=== PATIENT | female | born 1965 | race Caucasian/White ===

== ENCOUNTER → 2020-12-10 | Day surgery (SDC) | payer OTHER, MEDICAID ==
[~2020-12-10] MED LIST: CLONAZEPAM 0.50.5 M1 PO; EPIPEN0.3 MG/0.1 IM; ESTER-C 1,0001 EACH PO; FENOFIBRATE160 MG PO; FLEXERIL PO; IMITREX 25 MG T25 M1 PO; KRILL OIL 1,001 EAC1 PO; LEVO-T100 MCG PO; LITHIUM CARBON150 MG PO; MELATONIN10 M3 PO; MILLTRIUM SENI1 EACH PO; NORCO5 PO; OMEPRAZOLE 20 M20 M1 PO; PROAIR HFA8.5 GM INH; PROZAC10 M1 PO; SEROQUEL300 MG PO; TENS 5021 EACH MISCELL; TRAZODONE HCL100 MG PO; TYLENOL325 M1 PO; VITAMIN D310 MC2 PO
--- NOTE | ~2020-12-10 | OP ---
[address] [address] OPERATIVE REPORT Name: ARNAV BARRY Room: [facility]#: [id number] Admission: 12/10/20 Attend Phys: Andrew Turner II Discharge: Date of : 69 Report #: [id number] THIS REPORT FOR: cc: Hannah Lipscomb MD, Pamela MD Greiner, Robert F. II DO ~ DOC #: [id number] Andrew Turner II, DO DATE OF SURGERY: 12/10/2020 PREOPERATIVE DIAGNOSIS: Right knee meniscus tear. POSTOPERATIVE DIAGNOSES: 1. Right knee meniscus tear. 2. Grade 3 chondromalacia of medial femoral condyle. 3. Lateral tracking patella. PROCEDURES PERFORMED: 1. Right knee arthroscopic surgery with partial medial meniscectomy. 2. Abrasion chondroplasty, medial femoral condyle down to bleeding bone. 3. Lateral release. SURGEON: Andrew Turner DO, II. MOLD BUNCH TRIMMER: None. ANESTHESIA: Per operative record. ESTIMATED BLOOD LOSS: Minimal. ANTIBIOTICS: Per operative record. DRAINS: None. COMPLICATIONS: None. CONDITION OF THE PATIENT: Stable to recovery room. OPERATIVE PROCEDURE: The patient was taken to the operative suite, placed supine on the operating table, given appropriate anesthesia. The patient's affected lower extremity was sterilely prepped and draped with a well-padded knee arthroscopic sullivan. Surgery began by medial and lateral portal incision. The arthroscope was advanced in the joint. There was shown to be grade 3 chondromalacia to the medial femoral condyle. Utilizing a shaver, abrasion chondroplasty performed on bleeding bone and smoothed utilizing Coblation wand. Medial meniscus was probed and shown to have a tear at the medial margin down to [facility] [address] [place] [address] OPERATIVE REPORT Name: ARNAV BARRY Room: [facility]#: [id number] Admission: 12/10/20 Attend Phys: Andrew Turner II Discharge: Date of : 69 Report #: [id number] the medial aspect of the joint. A partial meniscectomy was performed utilizing basket and shaver to resect the torn flap along the medial meniscus and then smoothed with Coblation wand. Lateral meniscus probed and shown to be intact. ACL and PCL were intact. The patella showed to have lateral tracking with fixed lateral tilt and translation. Utilizing cautery wand, a lateral release was performed over the lateral patellar retinaculum. This should have improved alignment and decreased patellar tilt and translation. Loose bodies were resected from around the ACL region. Final ____ of the knee was performed. Knee was drained of arthroscopic fluid, closed with 4-0 nylon in simple fashion. Dermabond and sterile dressing were applied. The patient transported to recovery room in stable condition. Counts were correct throughout the procedure. Andrew Turner II, DO RFG/JACKIE/AMI By: [id number] Turner II, DO /nt
== END | disposition home or self-care (01) ==
LOC: M.SUR 08:57
PROVIDERS: ATTEND Orthopaedic Surgery
DX: S83.241A Other tear of medial meniscus, current injury, right knee, initial encounter (principal); M94.261 Chondromalacia, right knee; M22.2X2 Patellofemoral disorders, left knee; X58.XXXA Exposure to other specified factors, initial encounter; Y93.89 Activity, other specified; Y92.89 Other specified places as the place of occurrence of the external cause; Y99.8 Other external cause status